=== PATIENT | female | born 1990 | race Two or more races ===

== ENCOUNTER 2016-07-10 12:54 | Emergency (ER) | payer MEDICAID, OTHER ==
[2016-07-10] MEDS ORDERED: LACTATED RINGERS 2,000 ML ONE (13:27)
[2016-07-10] MEDS ORDERED: METOCLOPRAMIDE HCL 5 MG/ML 2ML VIAL ONE (13:27)
[2016-07-10 13:30] LABS: ABSOLUTE NEUTROPHIL COUNT 8.1 K/mm3 (1.8-7.7); BASO % 0.1 % (0.2-1.0); HEMOGLOBIN 10.4 gm/l (12.0-16.0); IMM NEUT% 0.5 % (0-1); LYMPH # 0.5 (1.0-4.8); MEAN CELL VOLUME 98.8 fl (81.0-99.0); MEAN CORPUSCULAR HEMOGLOBIN 32.1 pg (27.0-31.0); MEAN CORPUSCULAR HGB CONC 32.5 g/dl (33.0-37.0); MEAN PLATELET VOLUME 11.2 fl (7.4-10.4); MONO # 0.2 (0.0-0.8); MONO % 2.3 % (4-12); NEUT % 91.1 % (43-75); PLATELET COUNT 211 K/mm3 (130-400); RED CELL DISTRIBUTION WIDTH 12.6 % (11.5-14.5)
[2016-07-10 13:49] LABS: ALB/GLOB RATIO 1.1 (>1.0); ALBUMIN 3.1 gm/dL (3.5-5.7); CALCIUM 8.1 mg/dL (8.6-10.3)
--- NOTE | 2016-07-10 14:41 | US ---
Exam: Limited obstetric ultrasound. COMPARISON: None INDICATION: Abdominal cramping, mucous plug discharge. Check viability. EGA 20 weeks 6 days. Findings: Limited, emergent transabdominal obstetric ultrasound was obtained. Real-time sonographic imaging demonstrated a single live intrauterine in transverse presentation with a heart rate of 160 bpm. movement is seen. Amniotic fluid volume is subjectively normal. There is a posteriorly located placenta with evidence of previa. Cervix appears closed and measures 4 cm. anatomic survey was not performed. IMPRESSION: Single live intrauterine with a heart rate of 160 bpm. GAYLE is subjectively normal. Cervix remains closed. Report was uploaded to the EMR at 1437 hours 07/10/2016
[2016-07-10 15:15] LABS: SPECIFIC GRAVITY 1.015 (1.001-1.030); URINE BILIRUBIN NEGATIVE (NEGATIVE); URINE BLOOD NEGATIVE (NEGATIVE); URINE GLUCOSE (UA) TRACE (NEGATIVE); URINE LEUKOCYTE ESTERASE TRACE (NEGATIVE); URINE NITRITE NEGATIVE (NEGATIVE); URINE PROTEIN NEGATIVE (NEGATIVE); URINE UROBILINOGEN NORMAL (0-1 mg/dl)
[2016-07-10 15:16] LABS: URINE APPEARANCE HAZY; URINE COLOR LIGHT YELLOW
[2016-07-10 15:29] LABS: URINE RBC 0-1 /hpf; URINE WBC 0-1 /hpf
[2016-07-10 15:30] LABS: URINE BACTERIA 2+
[2016-07-10 15:57] LABS: BAND 2 % (0-10); BASOPHIL 0 % (0-1); EOSINOPHIL 0 % (1-3); LYMPHOCYTE 6 % (15-45); MONOCYTE 1 % (4-12); NEUTROPHILS 91 % (43-75); PLATELET ESTIMATE NORMAL (NORMAL); TOTAL CELLS COUNTED 100
[2016-07-11 15:47] LABS: CHLAMYDIA BD Negative (Negative); N.GONORRHOEAE BD Negative (Negative); SOURCE Cervix/Endocrvx (())
== END 2016-07-10 16:18 | disposition home or self-care (01) ==
LOC: ED 12:54
DX: O26.892 Other specified pregnancy related conditions, second trimester (principal); R10.9 Unspecified abdominal pain; E16.2 Hypoglycemia, unspecified; R19.7 Diarrhea, unspecified; O21.2 Late vomiting of pregnancy; Z3A.22 22 weeks gestation of pregnancy
CPT/HCPCS: 83605; 83690; 87491; 87591; 84702; 85025; 80053; 87081; 81001; 87210; 76815; 99284; 96374; 96361 ×2; 82962; 99283; J2765; J7120